=== PATIENT | male | born 1990 | race African-American/Black ===

== ENCOUNTER 2022-01-22 06:08 | Emergency (ER) | payer MEDICAID ==
[~2022-01-22] VITALS: Ht 185.4 cm; Wt 71.0 kg
[2022-01-22 06:10] VITALS: BP 115/71
[2022-01-22] MEDS ORDERED: ONDANSETRON HCL 4MG/2ML INJ IV STA (06:36)
[2022-01-22] MEDS ORDERED: MORPHINE SULFATE 4 MG/ML CPJ (NOT FOR IM USE) IV STA (06:36)
[2022-01-22] MEDS ORDERED: SODIUM CHLORIDE 0.9% 1,000 ML IV ONE (06:45)
[2022-01-22] MEDS ORDERED: METOCLOPRAMIDE HCL 10MG/2ML VIAL IV ONE (08:15)
[2022-01-22 08:44] LABS: HEMATOCRIT. 42.9 % (42.0-52.0); HEMOGLOBIN. 14.8 g/dL (14.0-18.0); MEAN CORPUSCULAR HEMOGLOBIN 31.4 pg (28.0-32.0); MEAN CORPUSCULAR VOLUME 91.1 fL (80.0-94.0); PLATELET 171 x1000/uL (130-400); RED BLOOD CELL COUNT 4.71 mill/uL (4.7-6.1); RED CELL DISTRIBUTION WIDTH 13.1 % (11.6-14.6)
[2022-01-22 09:27] LABS: CHLORIDE 111 mEq/L (98-107)
[2022-01-22 09:37] LABS: PLATELET ESTIMATE NORMAL
[2022-01-22] MEDS ORDERED: ONDA4TAB5 MT (09:45)
== END 2022-01-22 10:19 | disposition home or self-care (01) ==
LOC: ER 06:08
DX: K52.9 Noninfective gastroenteritis and colitis, unspecified (principal)
CPT/HCPCS: 36415; 80053; 83690; 85025; 96361; 96374; 96375; 99284; J2270; J2405; J2765; J7030